=== PATIENT | female | born 1995 | race Caucasian/White ===

== ENCOUNTER 2017-08-17 23:10 | Emergency (ER) | payer OTHER ==
[2017-08-17 23:27] VITALS: RESP 16; TEMP 98.6
--- NOTE | 2017-08-17 23:39 | CPEKG ---
Heart Rate: 88 RR Interval: 682 P-R Interval: 160 QRSD Interval: 80 QT Interval: 356 QTC Interval: 431 P [place]: 17 QRS [place]: 81 T Wave [place]: -9 EKG Severity - BORDERLINE ECG - EKG Impression: SINUS RHYTHM Electronically Signed By: Brittney Escobedo 18-Aug-2017 23:08:19
--- NOTE | 2017-08-18 00:33 | EDPHY ---
H & P Stated Complaint: left sided chest pain X 2 days HPI/ROS: HPI The patient presents with intermittent left-sided chest pain which is sharp in nature, last for several hours and resolved on its own. It began spontaneously 2 days ago. She has no prior history of similar. It is worse with changes in position and deep breaths. She denies any leg swelling, shortness of breath, coughing, fever. She does say she has been feeling tired lately. She did travel to [place] 2 [place] ago for [place]. She has no personal or family history of DVT PE.. REVIEW OF SYSTEMS Constitutional: No fever, no chills. Eyes: No discharge. ENT: No sore throat. Cardiovascular: Positive for chest pain, no palpitations. Respiratory: No cough, no shortness of breath. Gastrointestinal: No abdominal pain, no vomiting. Genitourinary: No hematuria. Musculoskeletal: No back pain. Skin: No rashes. Neurological: No headache. PMHx: Healthy Soc Hx: College student PHYSICAL General Appearance: Alert, no distress Eyes: Pupils equal and round no pallor or injection ENT, Mouth: Mucous membranes moist Respiratory: There are no retractions, lungs are clear to auscultation Cardiovascular: Regular rate and rhythm Gastrointestinal: Abdomen is soft and non-tender, no masses, bowel sounds normal Neurological: A&O, moves all extremities Skin: Warm and dry, no rashes Musculoskeletal: Neck is supple non tender Extremities: symmetrical, full range of motion Psychiatric: Patient is oriented X 3, there is no agitation Source: Patient Exam Limitations: No limitations - Personal History LMP (Females 10-55): 1-7 Days Ago Current Tetanus/Diphtheria Vaccine: Yes Current Tetanus Diphtheria and Acellular Pertussis (TDAP): Yes - Medical/Surgical History Hx Asthma: No Hx Chronic Respiratory Disease: No Hx Diabetes: No Hx Cardiac Disease: No Hx Renal Disease: No Hx Cirrhosis: No Hx Alcoholism: No Hx HIV/AIDS: No Hx Splenectomy or Spleen Trauma: No Other PMH: denies - Social History Smoking Status: Never smoked Constitutional: Initial Vital Signs Temperature (C) 37.0 C 08/17/17 23:24 Heart Rate 90 08/17/17 23:24 Respiratory Rate 16 08/17/17 23:24 Blood Pressure 132/92 H 08/17/17 23:24 O2 Sat (%) 97 08/17/17 23:24 O2 Delivery Mode Room Air Allergies/Adverse Reactions: No Known Allergies Allergy (Unverified 08/17/17 23:24) Home Medications: Medication Instructions Recorded NK [No Known Home Meds] 08/17/17 Medical Decision Making - Diagnostics EKG Interpretation: EKG: Complete interpretation has been separately recorded in the [email or web address] archive. Summary impression: Normal sinus rhythm Imaging Results: Chest x-ray two view shows no cardiomegaly, no infiltrate, no effusion, interpreted by me, radiology interpretation is pending. Differential Diagnosis: 22-year-old healthy female presents with 2 days of intermittent right-sided pleuritic chest pain. Differential diagnosis includes PE, muscle strain, costochondritis, GERD, pneumonia, pneumothorax. In the emergency department, chest x-ray EKG were performed and were unremarkable. Given the patient's recent travel and history of OCP use, labs were checked including D-dimer. This was negative, thus I feel her risk for PE is quite low and no further imaging is needed. As I have explained that she likely has costochondritis and I have encouraged her to take ibuprofen until her pain improves. She is to return to the emergency department if he is worse in any way. - Data Points Laboratory Results: Laboratory Results 08/18/17 01:10 08/18/17 01:10 08/18/17 08/18/17 08/18/17 01:10 01:10 01:10 WBC 6.78 10^3/uL 10^3/uL (3.80-9.50) RBC 4.73 10^6/uL 10^6/uL (4.18-5.33) Hgb 14.8 g/dL g/dL (12.6-16.3) Hct 41.4 % % (38.0-47.0) MCV 87.5 fL fL (81.5-99.8) MCH 31.3 pg pg (27.9-34.1) MCHC 35.7 g/dL g/dL (32.4-36.7) RDW 11.4 % L % (11.5-15.2) Plt Count 259 10^3/uL 10^3/uL (150-400) MPV 9.0 fL fL (8.7-11.7) Neut % (Auto) 41.8 % % (39.3-74.2) Lymph % (Auto) 46.5 % H % (15.0-45.0) [place] % (Auto) 9.9 % % (4.5-13.0) Eos % (Auto) 1.3 % % (0.6-7.6) Baso % (Auto) 0.4 % % (0.3-1.7) Nucleat RBC Rel Count 0.0 % % (0.0-0.2) Absolute Neuts (auto) 2.83 10^3/uL 10^3/uL (1.70-6.50) Absolute Lymphs (auto) 3.15 10^3/uL H 10^3/uL (1.00-3.00) Absolute Monos (auto) 0.67 10^3/uL 10^3/uL (0.30-0.80) Absolute Eos (auto) 0.09 10^3/uL 10^3/uL (0.03-0.40) Absolute Basos (auto) 0.03 10^3/uL 10^3/uL (0.02-0.10) Absolute Nucleated RBC 0.00 10^3/uL 10^3/uL (0-0.01) Immature Gran % 0.1 % % (0.0-1.1) Immature Gran # 0.01 10^3/uL 10^3/uL (0.00-0.10) D-Dimer < 0.27 ug/mLFEU ug/mLFEU (0.00-0.50) Sodium 143 mEq/L mEq/L (134-144) Potassium 4.2 mEq/L mEq/L (3.5-5.2) Chloride 106 mEq/L mEq/L (97-110) Carbon Dioxide 22 mEq/l mEq/l (22-31) Anion Gap 15 mEq/L mEq/L (8-16) BUN 16 mg/dL mg/dL (7-23) Creatinine 0.7 mg/dL mg/dL (0.6-1.0) Estimated GFR > 60 Glucose 90 mg/dL mg/dL (70-100) Calcium 9.8 mg/dL mg/dL (8.5-10.4) Departure - Departure Disposition: Home, Routine, Self-Care Clinical Impression: Chest wall pain Condition: Good Instructions: Pleurisy (ED) Additional Instructions: You should take ibuprofen 400 mg every 6 hr as needed for pain. If your pain continues, you should follow up with your primary care doctor. If your worse in any way you should return to the emergency department. Referrals: Subha Pantoja [Primary Care Provider] - As per Instructions
[2017-08-18 01:18] LABS: % IMMATURE GRANULYOCYTES 0.1 % (0.0-1.1); ABSOLUTE IMMATURE GRANULOCYTES 0.01 10^3/uL (0.00-0.10); ADD DIFF? NO; ADD MORPH? NO; ADD SCAN? NO; ATYPICAL LYMPHOCYTE FLAG 20 (0-99); FRAGMENT RBC FLAG 0 (0-99); HEMATOCRIT 41.4 % (38.0-47.0); HEMOGLOBIN 14.8 g/dL (12.6-16.3); LEFT SHIFT FLG 0 (0-99); LIPEMIA HEMOLYSIS FLAG 90 (0-99); MEAN CELL HEMOGLOBIN 31.3 pg (27.9-34.1); MEAN CELL HEMOGLOBIN CONCENTR. 35.7 g/dL (32.4-36.7); MEAN CELL VOLUME 87.5 fL (81.5-99.8); PLATELET CLUMPS FLAG 0 (0-99); PLATELET COUNT 259 10^3/uL (150-400); RED BLOOD CELL COUNT 4.73 10^6/uL (4.18-5.33); RED CELL DISTRIBUTION WIDTH 11.4 % (11.5-15.2)
[2017-08-18 01:30] LABS: ANION GAP 15 mEq/L (8-16); CALCIUM 9.8 mg/dL (8.5-10.4); CARBON DIOXIDE 22 mEq/l (22-31); CHLORIDE 106 mEq/L (97-110); CREATININE 0.7 mg/dL (0.6-1.0); GLOMERULAR FILTRATION RATE > 60; GLUCOSE 90 mg/dL (70-100); POTASSIUM 4.2 mEq/L (3.5-5.2); SODIUM 143 mEq/L (134-144)
[2017-08-18 01:55] VITALS: BP 117/75; PULSE 87; O2SAT 96
== END 2017-08-18 01:55 | disposition home or self-care (01) ==
DX: R07.89 Other chest pain (principal)